=== PATIENT | female | born 1975 | race Caucasian/White ===

== ENCOUNTER 2024-02-09 22:30 | Emergency (ER) | payer OTHER ==
[~2024-02-09] VITALS: Ht 162.6 cm; Wt 77.1 kg
[2024-02-09 22:37] VITALS: BP_SYST 186; PULSE 118; RESP 20; TEMP 99.8; O2SAT 98
[2024-02-10 00:16] LABS: BILIRUBIN,URINE NEGATIVE (NEGATIVE); BLOOD, URINE 2+ (NEGATIVE); COLOR,URINE YELLOW (YELLOW); GLUCOSE,URINE NEGATIVE (NEGATIVE); KETONES,URINE NEGATIVE (NEGATIVE); LEUKOCYTE ESTERASE ,URINE 1+ (NEGATIVE); NITRITE, URINE NEGATIVE (NEGATIVE); PH,URINE 6.5 (5.0-8.0); PROTEIN URINE 1+ (NEGATIVE); UROBILINOGEN,URINE 0.2 (0.2-1.0)
[2024-02-10 00:24] LABS: BASOPHILS % (AUTO) 0.1 % (0.0-2.0); EOSINOPHILS % (AUTO) 0.1 % (0.0-4.0); HEMOGLOBIN 13.1 g/dL (12.0-16.0); LYMPHOCYTES # (AUTO) 1.2 K/uL (1.0-5.5); LYMPHOCYTES % (AUTO) 7.3 % (20.5-51.5); MEAN CORPUSCULAR HEMOGLOBIN 28 pg (27-31); MEAN CORPUSCULAR HGB CONC 34 % (32-36); MEAN CORPUSCULAR VOLUME 80 fL (79.0-98.0); MONOCYTES # (AUTO) 0.8 K/uL (0.0-1.0); MONOCYTES % (AUTO) 4.9 % (1.7-9.3); NEUTROPHILS # (AUTO) 14.7 K/uL (1.8-7.7); NEUTROPHILS % (AUTO) 87.6 % (40.0-70.0); PLATELET COUNT (AUTO) 232 K/uL (130-430); RED BLOOD CELL COUNT(AUTO) 4.73 MIL/uL (4.2-6.2); RED CELL DISTRIBUTION WIDTH 14.1 % (9.0-15.0); WHITE BLOOD COUNT (AUTO) 16.7 K/uL (4.8-10.8)
[2024-02-10] MEDS: KETOROLAC TROMETHAMINE 30 MG VIAL IVP ONE (00:32)
[2024-02-10] MEDS: NACL 0.9% 1,000 ML IV ONE (00:35)
[2024-02-10 00:41] LABS: CLARITY/URINE SLIGHTLY CLOUDY (CLEAR)
[2024-02-10 00:44] LABS: BACTERIA,URINE MODERATE /HPF (None Seen); WBC,URINE 20-50 /HPF (0-3)
[2024-02-10 00:48] LABS: ALBUMIN 3.9 g/dL (3.4-4.8); BILIRUBIN,DIRECT 0.1 mg/dL (0.0-0.3); CALCIUM 8.9 mg/dL (8.4-11.0); CREATININE 1.06 mg/dL (0.55-1.30); POTASSIUM 3.5 mmol/L (3.5-5.1); TOTAL BILIRUBIN 0.4 mg/dL (0.0-1.0); TOTAL PROTEIN, SERUM 8.2 g/dL (6.4-8.3)
[2024-02-10] MEDS: cefTRIAXone 1 GM IVPB PREMIX 50 ML IV ONE (02:52)
[2024-02-10] MEDS ORDERED: CIPR500T5 PO (03:36)
[2024-02-10 03:52] VITALS: BP_SYST 157; PULSE 92; RESP 20; TEMP 98; O2SAT 96
== END 2024-02-10 03:52 | disposition home or self-care (01) ==
LOC: SED 22:30
DX: N10 Acute pyelonephritis (principal); R10.84 Generalized abdominal pain; I10 Essential (primary) hypertension; Z98.890 Other specified postprocedural states; Z79.2 Long term (current) use of antibiotics
CPT/HCPCS: 99285; 80076; 80048; 81000; 81001; 85025; 87040; 87086; 36415; 83605; 74176; 96365; 96361; 96375; 81025; 81015; J0696; J1885; J7030